=== PATIENT | male | born 1945 | race Caucasian/White ===

== ENCOUNTER → 2019-02-07 | Outpatient (CLI) | payer MEDICARE ==
--- NOTE | 2019-02-07 11:38 | [facility] ---
Bone mineral density study dated 02/07/2019. Indication: Postmenopausal screening. Findings: Lower lumbar spine: BMD (g/cm2): Total L1-L4.......... 1.274. . T-Score: Total L1-L4.................... 1.7. Z-Score: Total L1-L4 ................... 2.7. Left Hip: BMD (g/cm2): Total .......... 0.728. . T-Score: Total .................... -2.0. Z-Score: Total ................... -1.2. World Health Organization criteria for BMD interpretation classify patients as Normal (T-score at or above -1.0), Osteopenic (T-score between -1.0 and -2.5), or Osteoporotic (T-score at or below -2.5). Impression: According to the World Health Organization, bone mineral density values within left femur correlate with osteopenia. The values of the lumbar spine are within the range of normal but could be falsely elevated due to advanced degenerative change. Electronically signed by: Todd Meier MD (02/07/2019 11:35 AM) [id number]
== END | disposition home or self-care (01) ==
LOC: KCIC DEXA 11:02
PROVIDERS: ATTEND Urology
DX: Z13.820 Encounter for screening for osteoporosis (principal); M85.852 Other specified disorders of bone density and structure, left thigh
CPT/HCPCS: 77080

== ENCOUNTER → 2019-03-18 | Outpatient (CLI) | payer MEDICARE, OTHER ==
--- NOTE | 2018-03-18 13:46 | RAD ---
Indication: Prostate cancer staging. Technique: Bone scintigraphy utilized 25.0 mCi technetium 99m labeled MDP IV. No radiographic correlates are available. Findings: Nonspecific uptake is noted in the shoulders and sternoclavicular joints bilaterally. Nonspecific uptake is noted in the spine, including lower thoracic and lumbar spine. All of this uptake is not specific, could be degenerative in nature. Uptake in the right antecubital region is presumably from injection site. Impression: Nonspecific uptake in the shoulders, sternoclavicular joints, and spine, all of which could be degenerative in nature. Metastatic uptake is not excluded.
== END | disposition home or self-care (01) ==
LOC: NM 09:00
PROVIDERS: ATTEND Urology
DX: C61 Malignant neoplasm of prostate (principal)
CPT/HCPCS: 78306; 96374; A9503